=== PATIENT | male | born 1985 | race Caucasian/White ===

== ENCOUNTER 2022-03-20 15:13 | Emergency (ER) | payer SELFPAY ==
--- NOTE | 2022-03-20 15:25 | NUR ---
pt walked outside from wheelchair and put himself on ground. security notified. pt left with spouse at this time
--- NOTE | 2022-03-20 15:30 | NUR ---
lwbs at this time
== END 2022-03-20 15:30 | disposition left against medical advice (07) ==
LOC: MED 15:13
DX: R11.10 Vomiting, unspecified (principal); Z53.21 Procedure and treatment not carried out due to patient leaving prior to being seen by health care provider